=== PATIENT | male | born 1965 | race Caucasian/White ===

== ENCOUNTER 2022-02-03 08:57 | Outpatient (CLI) | payer BC, SELFPAY | END 2022-02-03 08:58 | disposition home or self-care (01) | PROVIDERS: PCP Family Medicine; Visit Provider Internal Medicine | DX: Z12.11 Encounter for screening for malignant neoplasm of colon (principal); K63.5 Polyp of colon; K57.30 Diverticulosis of large intestine without perforation or abscess without bleeding; Z86.010 Personal history of colon polyps | CPT/HCPCS: 45385; 88305; 99153; J2250; J3010 ==

== ENCOUNTER 2022-03-24 15:09 | Outpatient (CLI) | payer BC, SELFPAY ==
[2022-03-24 18:37] LABS: SARS PCR* Negative SARS-CoV-2 (Negative)
== END 2022-03-24 15:10 | disposition home or self-care (01) ==
PROVIDERS: PCP Family Medicine; Visit Provider Family Medicine
DX: Z11.52 Encounter for screening for COVID-19 (principal)
CPT/HCPCS: 87635

== ENCOUNTER 2022-03-27 07:26 | Day surgery (SDC) | payer BC, SELFPAY ==
[2022-03-27] VITALS (7 sets, daily range): BP systolic 121–208; BP diastolic 60–114; PULSE 57–62; RESP 16; TEMP 36.4–37.1; O2SAT 92–98; BMI 33.9
[2022-03-27] MEDS: LACTATED RINGERS 1000 ML 1,000 ML 100 ML IV (08:00)
[2022-03-27] MEDS: SODIUM CHLORIDE 0.9 % (FLUSH) 10 ML SYRINGE IVF (08:42)
[2022-03-27] MEDS: BUPIVACAINE 0.25% 30 ML 20 ML INJECTION (10:26)
--- NOTE | 2022-03-27 11:04 | PM.GSPRC ---
Operative Note Date of procedure: 03/27/22 Type of Procedure: 1. Excision of posterior scalp mass. Procedure Description: After discussing the risks and benefits of the procedure, the patient signed informed consent.? The operative site was marked and the patient was brought to the operating room and placed on the operating table in the right lateral decubitus position.? Care was taken to pad the patient's pressure points.?? The patient was then sedated by anesthesia.?? The operative site was then prepped and draped in the usual sterile fashion.? A time-out was then performed. Local anesthetic was injected at the surgical site. A vertical elliptical skin incision was made with a scalpel over the mass. The ellipse of skin and subdermal fat were divided with cautery. The mass was located inferior to the subcutaneous fat and was tightly adherent to the galea. The ellipse of skin containing subcutaneous fat was excised with cautery in order to visualize the mass easily. The mass was then peeled off the galea with cautery. 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 This was sent to pathology. Skin flaps were mobilized laterally and medially with cautery. Hemostasis achieved with cautery. The incision was then reapproximated with interrupted 2-0 and 3-0 Vicryl sutures. The incision had to be lengthened superiorly to flatten it out. The length of the incision was 5.5 cm. Exofin was placed over the incision. Pressure dressing was placed over the incision and patient's head was wrapped with Coban. ?All counts were correct at the end of the case. Patient was transferred to same-day surgery in stable condition. 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 Anesthesia: MAC Surgeon: Ricardo Hopkins MD Estimated blood loss (mL): 2 Condition: stable Disposition: same day
--- NOTE | 2022-03-27 11:05 | W.ANESCHARGE ---
Anesthesia Charges Start Date/Time Anesthesia Start Date: 03/27/22 Anesthesia Start Time: 10:01 Stop Date/Time Anesthesia Stop Date: 03/27/22 Anesthesia Stop Time: 11:05 Summary Emergency: No
--- NOTE | 2022-03-27 11:29 | W.ANESCHARGE ---
Anesthesia Charges Start Date/Time Anesthesia Start Date: 03/27/22 Anesthesia Start Time: 10:01 Stop Date/Time Anesthesia Stop Date: 03/27/22 Anesthesia Stop Time: 11:05 Summary Emergency: No
[2022-03-27] MEDS: HYDROCODONE-ACETAMIN 5-325 MG 1 TAB PO (11:41)
== END 2022-03-27 12:10 | disposition home or self-care (01) ==
PROVIDERS: PCP Family Medicine; Visit Provider Surgery
PROC: (CPT 21012; principal; 2022-03-27 09:30)
DX: D17.0 Benign lipomatous neoplasm of skin and subcutaneous tissue of head, face and neck (principal)
CPT/HCPCS: 21012; 00300; 82962; 88304; A9270; J2250; J2405; J2704; J3010; J3490; J7120

== ENCOUNTER 2023-07-18 09:22 | Outpatient (CLI) | payer BC, SELFPAY ==
--- OUTSIDE RECORDS SUMMARY | 2023-07-18 09:45 | XMS_ITS | Clinical Summary ---
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 Name Role Phone Unavailable Primary Care Provider Unavailabl e Allergies No known active allergies Medications Medication Sig Dispensed Refills Start Date End Date Status SPORANOX PULSEPAK 100 MG CAPIndications:Dermat ophytosis of nail take 2 capsules (200mg) by oral route once daily with food 60 3 08/14/2006 Active LEVOTHYROXINE 50 MCG TAB take 1 tablet (50mcg) by oral route once daily 0 10/30/2006 Active Active Problems Problem Noted Date Diagnosed Date Ganglion, unspecified Overview: left foot Social History Tobacco Use Types Packs/Day Years Used Date Smoking Tobacco: Every Day Comments:1 cigar per day Alcohol Use Standard Drinks/Week Comments Not Asked 0 (1 standard drink = 0.6 oz pur e alcohol) Sex and Gender Information Value Date Recorded Sex Assigned at Not on file Gender Identity Not on file Sexual Orientation Not on file Obstetrics History Last Filed Vital Signs Vital Sign Reading Time Taken Comments Blood Pressure 119/82 11/08/2006 2:19 PM CDT (from Extended Vitals) Pulse 60 11/08/2006 2:19 PM CDT (from Extended Vitals) Temperature 37.1 ??C (98.7 ??F) 11/08/2006 2 :00 PM CDT Respiratory Rate 16 08/14/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 Oxygen Saturation - - Inhaled Oxygen Concentration - - Weight 159 kg (350 lb 8 oz) 08/14/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 Height - - Body Mass Index - - Plan of Treatment Health Maintenance Due Date Last Done Comments COVID-19 vaccine series (#1) 01/12/1965 Tdap 1975 Depression screening for age 12+ 1976 HIV for age 15-65 1979 BMI (ht and wt on same day) for age 18+ 1982 Hepatitis C screening for ag e 18-79 1982 Tetanus booster 1984 Colonoscopy through age 75 2009 Lipids for age 45-75 2009 Zoster (shingles) series for age 50+ (1 of 2) 2014 Influenza for age 50-64 03/09/2023 Pneumococcal series for age 6-64 Aged Out No longer eligible based on patient's age to complete this topic [facility] Employer 07/09/2000 x5 (Home) [phone] x5 (Work) [employer] [address] [address] [place] [address]
== END 2023-07-18 09:23 | disposition home or self-care (01) ==
PROVIDERS: PCP Family Medicine; Visit Provider Family Medicine
DX: Z00.00 Encounter for general adult medical examination without abnormal findings (principal); I10 Essential (primary) hypertension; E03.9 Hypothyroidism, unspecified; E78.5 Hyperlipidemia, unspecified; E11.9 Type 2 diabetes mellitus without complications; Z12.5 Encounter for screening for malignant neoplasm of prostate; Z13.6 Encounter for screening for cardiovascular disorders
CPT/HCPCS: 80053; 80061; 82043; 82570; 84443; G0103

== ENCOUNTER 2024-09-08 09:03 | Outpatient (CLI) | payer BC, SELFPAY | END 2024-09-08 09:04 | disposition home or self-care (01) | LOC: NFLDREF 09:03 | PROVIDERS: PCP Family Medicine; Visit Provider Family Medicine | DX: E78.5 Hyperlipidemia, unspecified (principal); I10 Essential (primary) hypertension; E11.65 Type 2 diabetes mellitus with hyperglycemia; Z79.84 Long term (current) use of oral hypoglycemic drugs; Z12.5 Encounter for screening for malignant neoplasm of prostate | CPT/HCPCS: 80053; 80061; 82043; 82570; G0103 ==